=== PATIENT | male | born 1975 | race African-American/Black ===

== ENCOUNTER 2019-03-07 00:12 | Emergency (ER) | payer SELFPAY ==
[~2019-03-07] VITALS: Ht 180.3 cm; Wt 79.0 kg
[2019-03-07] MEDS ORDERED: KETOROLAC 60MG/2ML VIAL IM ONE (01:45)
[2019-03-07 02:29] VITALS: BP 107/65
== END 2019-03-07 02:31 | disposition home or self-care (01) ==
LOC: ER 01:38
DX: R07.89 Other chest pain (principal); F12.10 Cannabis abuse, uncomplicated
CPT/HCPCS: 71045; 93005; 96372; 99283; J1885